=== PATIENT | female | born 1955 | race Caucasian/White ===

== ENCOUNTER 2020-12-28 02:04 | Outpatient (CLI) | payer MEDICARE, OTHER, SELFPAY ==
[2020-12-28 12:33] LABS: HCT 43.1 % (36.0-46.0); MCH 30.9 pg (27.0-33.0); MCHC 32.5 % (32.0-36.0); MCV 95.1 fL (80-95); MPV 10.1 fL (8.0-11.0); Platelet Count 237 10^3/uL (130-400); RBC 4.53 10^6/uL (3.93-5.22); RDW 13.1 % (11.7-14.6); RDW-SD 46.3 fL
[2020-12-28 13:17] LABS: ALT 30 U/L (14-59); AST 20 U/L (15-37); Albumin 4.3 g/dL (3.4-5.0); Alkaline Phosphatase 38 U/L (46-116); Anion Gap 6.4 mmol/L (3-11); BUN 13 mg/dL (7-18); Bilirubin, Total 0.6 mg/dL (0.2-1.0); CO2 32.6 mmol/L (21.0-32.0); CREATININE 0.8 mg/dL (0.55-1.02); Calcium 9.4 mg/dL (8.5-10.1); Calculated LDL 83 mg/dL (<100); Chloride 104 mmol/L (98-107); Cholesterol 167 mg/dL (<200); Glucose 87 mg/dL (74-106); HDL Cholesterol 64 mg/dL (40-60); Potassium 4.2 mmol/L (3.5-5.1); Sodium 143 mmol/L (136-145); Triglyceride 102 mg/dL (<150)
[2020-12-31 02:57] LABS: Vitamin D 25 Total 30.1 ng/mL (30-100)
== END 2020-12-28 02:05 | disposition home or self-care (01) ==
LOC: LBO 02:04
PROVIDERS: PCP Student in an Organized Health Care Education/Training Program; Visit Provider Student in an Organized Health Care Education/Training Program
DX: E78.5 Hyperlipidemia, unspecified (principal); M85.80 Other specified disorders of bone density and structure, unspecified site; G47.00 Insomnia, unspecified; E86.0 Dehydration; Z79.1 Long term (current) use of non-steroidal anti-inflammatories (NSAID)
CPT/HCPCS: 36415; 80053; 80061; 82306; 85027

== ENCOUNTER 2021-01-22 08:27 | Outpatient (CLI) | payer MEDICARE, OTHER, SELFPAY ==
--- NOTE | 2021-01-22 13:22 | DI.MAMMO_ITS ---
Exam(s) MAMMO SCREENING EXAM: MAMMO SCREENING CLINICAL HISTORY: screening,z12.39 TECHNIQUE: Mammograms were interpreted according to the usual protocol including computer analysis w Performable system, tomosynthesis and C-view imaging. COMPARISON: FINDINGS: The breasts are of moderate density with fairly symmetrical distribution of fibroglandular tissue. A 14 millimeter in diameter lobulated well-circumscribed mass of the upper outer quadrant of the right breast is again noted and unchanged in appearance comparison with prior examinations from January 08 and January 2018. No other significant changes seen. No clumped microcalcifications identified in either breast. IMPRESSION: No specific evidence of malignancy at this time. Routine screening examinations are suggested at yea rly intervals in this age group according to the ACS ACR guidelines. BI-RADS Category 1 - Negative Breast Density - Category B - Scattered areas of fibroglandular density
== END 2021-01-22 08:47 ==
PROVIDERS: PCP Student in an Organized Health Care Education/Training Program; Visit Provider Student in an Organized Health Care Education/Training Program
DX: Z12.31 Encounter for screening mammogram for malignant neoplasm of breast (principal)
CPT/HCPCS: 77063; 77067

== ENCOUNTER → 2022-02-26 00:55 | Outpatient (CLI) | payer MEDICARE, OTHER, SELFPAY ==
--- NOTE | 2022-02-26 15:20 | DI.MAMMO_ITS ---
Exam(s) MAMMO SCREENING EXAM: MAMMO SCREENING CLINICAL HISTORY: screening,z12.39. TECHNIQUE: Bilateral full field digital CC and MLO mammographic images were obtained with 3D tomosyn thesis and utilizing computer aided detection (CAD). COMPARISON: Prior mammograms were reviewed. FINDINGS: There has been no significant change in the appearance and distribution of the fibroglandular tissue. Previously described lateral of center right breast nodule is unchanged in size and configuration, un changed from 2018 and therefore most likely benign. There are no new spiculated masses nor malignant appearing microcalcification groups. Calcified oil cysts and benign macro calcifications are again evident in both breasts. There is no significant architectural distortion nor skin thickening-retraction. IMPRESSION: Stable benign-appearing findings. No radiographic evidence of malignancy. BI-RADS Category 2 - Benign Findings Breast Density - Category B - Scattered areas of fibroglandular density Breast density Category C or D implies that the patient has dense breast tissue. Dense breast tissue can make it harder to find cancer on a mammogram. Dense breast tissue is also associated with an incr eased risk of breast cancer. This information about the result of the mammogram report was provided to the patient to raise their awareness. Use this report when you speak with the patient about their risks for breast cancer, which includes their family history. At that time, you may recommend additional screening tests (Ultrasoun d or MRI) as these tests may add significant information. A negative radiographic report should not delay biopsy if a dominant or clinically suspicious mass is present. Up to ten percent of cancers are not identified on mammography. A negative report may reinforce clinical impression. Adenosis and dense breasts may obscure an underlying neoplasm. False positive reports average 6 to 10%. Patient will receive a letter notifying them of these results.
== END ==
PROVIDERS: PCP Student in an Organized Health Care Education/Training Program; Visit Provider Student in an Organized Health Care Education/Training Program
DX: Z12.31 Encounter for screening mammogram for malignant neoplasm of breast (principal)
CPT/HCPCS: 77063; 77067

== ENCOUNTER 2022-07-02 17:49 | Emergency (ER) | payer MEDICARE, OTHER, SELFPAY ==
[2022-07-02 17:52] VITALS: BP 154/78; PULSE 88; RESP 18; TEMP 37.2; O2SAT 98
--- NOTE | 2022-07-02 18:10 | ED.GENADUL_ITS ---
Discharge Plan Disposition Patient Disposition: Home Discharge Details Clinical Impression: Infected dog bite of hand Primary Care Provider: Kya Bui ED Provider: Dahlia Wakefield Home Meds and New Rx's Prescriptions: New amoxicillin-pot clavulanate 875-125 mg tablet 1 tab PO BID 10 Days Qty: 20 0RF No Action atorvastatin 20 mg tablet 20 mg PO DAILY Qty: 90 3RF Rx Instructions: Decreased from original 40mg per improved labs alendronate 70 mg tablet 70 mg PO QWEEK Qty: 52 0RF Discharge Instructions Instructions: Animal Bite (ED), Cellulitis (ED) Additional Instructions: Please take the antibiotic twice daily with yogurt or probiotic as directed. Please have your hand rechecked in the next 2 to 3 days. Please return sooner for any worsening redness or spreading redness up your arm, fever chills or concerns. Keep the bite clean and dry. You may wash with soap and water daily. You may return here to the ER or be seen by her PCP for wound recheck. Follow up with primary care provider in 3-5 days. Return to ED sooner if any worsening or concerns. Increase oral fluids. Referrals: Kya Bui DO [Primary Care Provider] - 3 days Discharge Data Discharge Date/Time-TO BE ENTERED AT DEPARTURE: 07/02/22 19:47 Medical Decision Making 67-year-old female presents to the ER with a chief complaint of right hand redness after being bit by her dog last night. She does have erythema extending up her forearm into her antecubital space. She does have a small skin tear noted to the dorsum of her right hand. She reports that she was playing with her dog and she took her hand back which was scraped by the dog's tooth. She reports some mild chills, no fever. She has full range of motion noted to her wrist and elbow. Last Tdap was 2019 4 years ago she is up-to-date. Work-up ordered including CBC CMP, lactate blood cultures x2, ampicillin 3gm IV ordered. CBC shows white blood cell count of 12.17, lactate 1.4 which is within normal limits sodium 135, glucose 123. Blood cultures pending at this time. Patient received 3 g of ampicillin sulbactam IV here in the department. Was given Augmentin 2 tablets to go and instructed to start those was given with a prescription for 10 days instructed to take with yogurt or probiotic. Patient was also instructed to have wound rechecked in 3 days either here or at PCP. Instructed to return sooner for any worsening red streaks or concerns. This text was generated using [employer] system, please disregard any oddities of phrase or misspellings. Lab Data Lab results reviewed: Yes I reviewed the patient's lab results. Labs: 07/02/22 18:38 Blood Blood Culture - Pending 07/02/22 18:07 Blood Blood Culture - Pending Laboratory Tests Range/Units 07/02/22 07/02/22 07/02/22 18:20 18:20 18:20 WBC (4.4-10.8) 10^3/uL 12.17 H RBC (3.93-5.22) 10^6/uL 4.41 Hgb (11.2-15.7) g/dL 13.5 Hct (36.0-46.0) % 40.2 MCV (80-95) fL 91 MCH (27.0-33.0) pg 30.6 MCHC (32.0-36.0) % 33.6 RDW (11.7-14.6) % 13.5 Plt Count (130-400) 10^3/uL 219 MPV (8.0-11.0) fL 10.2 Immature Gran % 0.2 Neutrophils % 80.3 Lymphocytes % 11.5 Monocytes % 7.2 Eosinophils % 0.6 Basophils % 0.2 Nucleated RBC % (0.0-0.3) % 0.0 Absolute Neutrophils (1.2-6.7) 10^3/uL 9.77 H Absolute Lymphocytes (1.2-3.4) 10^3/uL 1.40 Absolute Monocytes (0.1-0.8) 10^3/uL 0.88 H Absolute Eosinophils (0.0-0.7) 10^3/uL 0.07 Absolute Basophils (0.0-0.2) 10^3/uL 0.02 VBG Lactate (0.6-1.4) mmol/L 1.4 Sodium (136-145) mmol/L 135 L Potassium (3.5-5.1) mmol/L 3.7 Chloride (98-107) mmol/L 101 Carbon Dioxide (21.0-32.0) mmol/L 29.0 Anion Gap (3-11) mmol/L 5.0 BUN (7-18) mg/dL 10 Creatinine (0.55-1.02) mg/dL 0.8 Est GFR (CKD-EPI 2020) (mL/min/1.73m2) 80.21 Glucose (74-106) mg/dL 123 H Calcium (8.5-10.1) mg/dL 9.2 Magnesium (1.8-2.4) mg/dL 2.0 Total Bilirubin (0.2-1.0) mg/dL 1.1 H AST (15-37) U/L 27 ALT (14-59) U/L 29 Alkaline Phosphatase (46-116) U/L 40 L Total Protein (6.4-8.2) g/dL 7.4 Albumin (3.4-5.0) g/dL 4.3 HPI General Mode of arrival: ambulatory . Date/Time Provider Initiated Documentation: 07/02/22 17:59 . Limitations to Documentation: no limitations . Information obtained by: patient, RN notes reviewed and old records reviewed . HPI Narrative: 67-year-old female presents to the ER with a chief complaint of right hand redness after being bit by her dog last night. She does have erythema extending up her forearm into her antecubital space. She does have a small skin tear noted to the dorsum of her right hand. She reports that she was playing with her dog and she took her hand back which was scraped by the dog's tooth. She r eports some mild chills, no fever. She has full range of motion noted to her wrist and elbow. Last Tdap was 2019 4 years ago she is up-to-date. Related Data Home Medications Medication Instructions Recorded Confirmed alendronate 70 mg tablet 70 mg PO QWEEK #52 tabs 01/16/22 07/02/22 atorvastatin 20 mg tablet 20 mg PO DAILY #90 tabs 01/25/22 07/02/22 amoxicillin 875 mg-potassium 1 tab PO BID 10 days #20 tabs 07/02/22 clavulanate 125 mg tablet Previous Rx's Medication Instructions Recorded alendronate 70 mg tablet 70 mg PO QWEEK #52 tabs 01/16/22 atorvastatin 20 mg tablet 20 mg PO DAILY #90 tabs 01/25/22 amoxicillin 875 mg-potassium 1 tab PO BID 10 days #20 tabs 07/02/22 clavulanate 125 mg tablet Allergies Allergy/AdvReac Type Severity Reaction Status Date / Time No Known Allergies Allergy Verified 07/02/22 17:55 General Stated Complaint: Laceration NORMA: 3 Review of Systems All systems reviewed & are unremarkable except as noted in HPI and below Integumentary/Breasts Skin/Breast: Reports as per HPI, Reports erythema and Reports wounds PFSH All Active Problems (Updated 07/02/22 @ 19:36 by Dahlia Wakefield NP) Infected dog bite of hand (Acute) Hyperlipidemia (Acute) Statin 40 --> 20mg when establishing care (10/2020) .. Family hx of colon cancer (Acute) Pers Hx Polyps, so 1yr FU (2019?); 5 yr recall, for 2024 (but need rpt!) Contracture of right hand (Acute) Hx injury, Hx surgery (?). Worsening stiffness, contracture .. Ortho vs PT? Dupuytren's contracture of left hand (Chronic) Post surgery, with poor healing (permanent flexed pinky) Breast mass seen on mammogram (Chronic) Stable mass, 2020. YEARLY. Benign mass per mammo (01/2020), fibrous, mult calcifications. History of recurrent UTIs (Acute) Pelivc PT [ ] Osteoporosis (Chronic) med Rec shows Dx of Osteopenia, but Fosomax started & Hx reports: left femoral neck T-score -2.9 Insomnia (Acute) Hx Ambien Surgical History S/P wrist surgery (~2014) Family History Father Colon cancer Mother Heart disease Paternal Grandmother Diabetes Social History Smoking/Tobacco Use Status: Former Tobacco Use Quit Date: 03/09/76 Tobacco: How many years used: 2 Smoking risk assessment performed?: Yes Alcohol Intake: current Alcohol Intake frequency: a few times a week Alcohol type: beer and wine Drug use: Never Substance use type: does not use Adopted: No Caregiver/Support person: No Foster care: No Household members: spouse Housing: house Do you need help understanding health information?: Rarely Pets and animals: Yes Pets and animals: dog(s) Sexually active: No Do you think of yourself as: straight/heterosexual Current gender identity: female What is your relationship status?: How often do you talk on the phone with friends or family?: three or more times per week How often do you get together with friends or relatives?: once per week Panel score (0-1 are the most socially isolated patients): 2 What type of physical activity do you participate in: bicycling, other Details: skiiing and yoga Duration: 45-60 minutes/day Frequency: daily Seatbelt use: always Helmet use: Yes Drive intox or ride w/intox tractor trailer moving van driver: No Exam Const General: cooperative, healthy appearing, comfortable, well developed and well groomed Nutritional Appearance: average body habitus Orientation: alert, awake and oriented x3 Resp Effort & Inspection: normal respiratory effort and able to speak in complete sentences Auscultation: clear to auscultation bilaterally Cardio Rate: regular rate Rhythm: regular rhythm Extrem Right upper extremity: elbow/forearm and hand Details: normal capillary refill, neuromotor exam abnormal, neurosensory exam normal, normal ROM of fingers, warmth, swelling, abrasion and puncture wound Elbow/forearm/wrist images: 1. Erythema with red streaks 2. Small skin tear approximately 1.5 cm Course Vital Signs Vital signs: Vital Signs Temperature 37.2 C 07/02/22 17:52 Pulse 88 07/02/22 17:52 Respiratory Rate 18 07/02/22 17:52 Blood Pressure 154/78 H 07/02/22 17:52 Pulse Oximetry 98 07/02/22 17:52 Temperature 37.2 C 07/02/22 17:52 Temperature Source Oral 07/02/22 17:52 Pulse 88 07/02/22 17:52 Respiratory Rate 18 07/02/22 17:52 Respiratory Effort Normal, Non-Labored 07/02/22 17:55 Blood Pressure 154/78 H 07/02/22 17:52 Pulse Oximetry 98 07/02/22 17:52 Oxygen Delivery Method Room Air 07/02/22 17:52 Oxygen Flow Rate 0 07/02/22 17:52 Lab/Test Results Lab/Test Results: 07/02/22 18:07 Blood Blood Culture - Pending 07/02/22 18:07 Blood Blood Culture - Pending
--- NOTE | 2022-07-02 18:15 | DI.RAD_ITS ---
Exam(s) XR HAND RT COMPLETE EXAM: XR HAND RT COMPLETE CLINICAL HISTORY: Dog bite, R/O FB, FX. TECHNIQUE: 2D digital imaging was performed of the right hand. Three images were obtained. AP, late ral and oblique views were obtained. COMPARISON: No exams were available for comparison FINDINGS: BONES: No acute fracture is present. No bony destructive lesion is seen. The distal aspect of a sidep late and screws are seen in the distal right radius. There is a tiny calcific density seen at the ra dial aspect of the DIP joint of the long finger. This likely represents a benign calcification. Ple ase correlate with the patient's site of pain. There is an ununited ossification center of the ulnar styloid process. JOINTS: No dislocation present. SOFT TISSUE: There is soft tissue swelling of the index finger. No radiopaque foreign body is identi fied. IMPRESSION: 1. Soft tissue swelling of the index finger without foreign body or fracture. 2. Calcific density adjacent to the radial aspect of the DIP joint of the long finger. This does not appear to correspond to the site of pain. This likely reflects a benign calcification. Please sveta elate clinically. DATA REPOSITORY: RADIATION DOSE DELIVERED:
[2022-07-02 18:35] LABS: Lactate 1.4 mmol/L (0.6-1.4)
[2022-07-02 18:38] LABS: Abs Immature Grans 0.02 10^3/uL (0.0-0.06); Absolute Eosinophil Count 0.07 10^3/uL (0.0-0.7); Absolute Monocyte Count 0.88 10^3/uL (0.1-0.8); Absolute Neutrophil Count 9.77 10^3/uL (1.2-6.7); Basophils % 0.2; Eosinophils % 0.6; HCT 40.2 % (36.0-46.0); HGB 13.5 g/dL (11.2-15.7); Immature Grans % 0.2; Lymphocytes % 11.5; MCH 30.6 pg (27.0-33.0); MCHC 33.6 % (32.0-36.0); MCV 91 fL (80-95); MPV 10.2 fL (8.0-11.0); Monocytes % 7.2; Neutrophils % 80.3; Platelet Count 219 10^3/uL (130-400); RBC 4.41 10^6/uL (3.93-5.22); RDW 13.5 % (11.7-14.6); RDW-SD 45.7 fL; WBC 12.17 10^3/uL (4.4-10.8)
[2022-07-02 18:39] LABS: Absolute Basophil Count 0.02 10^3/uL (0.0-0.2)
[2022-07-02 18:52] LABS: ALT 29 U/L (14-59); AST 27 U/L (15-37); Albumin 4.3 g/dL (3.4-5.0); Alkaline Phosphatase 40 U/L (46-116); BUN 10 mg/dL (7-18); Bilirubin, Total 1.1 mg/dL (0.2-1.0); CREATININE 0.8 mg/dL (0.55-1.02); Calcium 9.2 mg/dL (8.5-10.1); Chloride 101 mmol/L (98-107); Estimated GFR 80.21 (mL/min/1.73m2); Glucose 123 mg/dL (74-106); Potassium 3.7 mmol/L (3.5-5.1); Sodium 135 mmol/L (136-145); Total Protein 7.4 g/dL (6.4-8.2)
--- NOTE | 2022-07-02 18:56 | DI.VRAD_ITS ---
PROCEDURE INFORMATION: Exam: XR Right Hand Exam date and time: 07/02/2022 6:45 PM Age: 67 years old Clinical indication: Injury or trauma; Other: Dog bite; Hand; Right TECHNIQUE: Imaging protocol: Radiologic exam of the right hand. Views: 3 or more views. COMPARISON: No relevant prior studies available. FINDINGS: Bones/joints: Orthopedic hardware noted in the distal radius. Small calcific density is seen at the radial margin of the 3rd distal interphalangeal joint. Osseous alignment is normal. Ununited ossification center of the ulnar styloid noted. Soft tissues: There appears to be moderate soft tissue swelling of the index finger. IMPRESSION: 1. Apparent soft tissue swelling of the index finger without evidence of radiodense foreign body or underlying fracture 2. Small calcific density at the radial margin of the 3rd DIP joint. This could represent a small fracture unless this does not correspond to the site of injury, in which case it likely represents a benign calcification. Dictated and Authenticated by: Ant Campbell MD. Ordering:ELIZABETH Villagomez MD
[2022-07-02] MEDS: AMPICILLIN/SULBACTAM 3 GM in Normal Saline 100 ML IVPB (18:57)
== END 2022-07-02 19:47 | disposition home or self-care (01) ==
PROVIDERS: Emergency Provider Registered Nurse Emergency; PCP Student in an Organized Health Care Education/Training Program
DX: S61.451A Open bite of right hand, initial encounter (principal); L08.9 Local infection of the skin and subcutaneous tissue, unspecified; R68.83 Chills (without fever); W54.0XXA Bitten by dog, initial encounter
CPT/HCPCS: 36415; 80053; 87040; 96365; 99284; 73130; 83605; 83735; 85025; J0295

== ENCOUNTER 2022-07-05 08:42 | Emergency (ER) | payer MEDICARE, OTHER, SELFPAY ==
[2022-07-05 08:45] VITALS: BP 166/91; PULSE 69; RESP 14; TEMP 36.1; O2SAT 96
--- NOTE | 2022-07-05 08:47 | W.ED.GENAD ---
Discharge Plan Disposition Patient Disposition: Home Discharge Details Clinical Impression: Healing wound Primary Care Provider: Kya Bui ED Provider: Vasile Grissom Home Meds and New Rx's Prescriptions: No Action atorvastatin 20 mg tablet 20 mg PO DAILY Qty: 90 3RF Rx Instructions: Decreased from original 40mg per improved labs alendronate 70 mg tablet 70 mg PO QWEEK Qty: 52 0RF Discharge Instructions Additional Instructions: Please continue taking the antibiotic as prescribed. HPI General Date/Time Provider Initiated Documentation: 07/05/22 08:47. HPI Narrative: Patient seen on july 02 following a dog bite to the right hand. She was told to return to the emergency department for wound check. She is taking the antibiotic. No drainage. No fever no chills. No bleeding. Decreased pain and increased mobility of the hand. Related Data Home Medications Medication Instructions Recorded Confirmed alendronate 70 mg tablet 70 mg PO QWEEK #52 tabs 01/16/22 07/05/22 atorvastatin 20 mg tablet 20 mg PO DAILY #90 tabs 01/25/22 07/05/22 Previous Rx's Medication Instructions Recorded alendronate 70 mg tablet 70 mg PO QWEEK #52 tabs 01/16/22 atorvastatin 20 mg tablet 20 mg PO DAILY #90 tabs 01/25/22 Allergies Allergy/AdvReac Type Severity Reaction Status Date / Time No Known Allergies Allergy Verified 07/02/22 17:55 General NORMA: 3 Review of Systems Narrative: Constitutional negative for fevers and chills. MSK no mobility. Skin healing well no drainage. Neuro normal sensation. PFSH All Active Problems (Updated 07/05/22 @ 08:51 by Vasile Grissom MD) Infected dog bite of hand (Acute) Healing wound (Acute) Hyperlipidemia (Acute) Statin 40 --> 20mg when establishing care (10/2020) .. Family hx of colon cancer (Acute) Pers Hx Polyps, so 1yr FU (2019?); 5 yr recall, for 2024 (but need rpt!) Contracture of right hand (Acute) Hx injury, Hx surgery (?). Worsening stiffness, contracture .. Ortho vs PT? Dupuytren's contracture of left hand (Chronic) Post surgery, with poor healing (permanent flexed pinky) Breast mass seen on mammogram (Chronic) Stable mass, 2020. YEARLY. Benign mass per mammo (01/2020), fibrous, mult calcifications. History of recurrent UTIs (Acute) Pelivc PT [ ] Osteoporosis (Chronic) med Rec shows Dx of Osteopenia, but Fosomax started & Hx reports: left femoral neck T-score -2.9 Insomnia (Acute) Hx Ambien Surgical History S/P wrist surgery (~2014) Family History Father Colon cancer Mother Heart disease Paternal Grandmother Diabetes Social History Smoking/Tobacco Use Status: Former Tobacco Use Quit Date: 03/09/76 Tobacco: How many years used: 2 Smoking risk assessment performed?: Yes Alcohol Intake: current Alcohol Intake frequency: a few times a week Alcohol type: beer and wine Drug use: Never Substance use type: does not use Adopted: No Caregiver/Support person: No Foster care: No Household members: spouse Housing: house Do you need help understanding health information?: Rarely Pets and animals: Yes Pets and animals: dog(s) Sexually active: No Do you think of yourself as: straight/heterosexual Current gender identity: female What is your relationship status?: How often do you talk on the phone with friends or family?: three or more times per week How often do you get together with friends or relatives?: once per week Panel score (0-1 are the most socially isolated patients): 2 What type of physical activity do you participate in: bicycling, other Details: skiiing and yoga Duration: 45-60 minutes/day Frequency: daily Seatbelt use: always Helmet use: Yes Drive intox 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 Respiratory no dyspnea Right hand. Healing wound on the dorsal aspect of the hand. Minimal swelling. No streaking
== END 2022-07-05 08:54 | disposition home or self-care (01) ==
PROVIDERS: Emergency Provider Emergency Medicine; PCP Student in an Organized Health Care Education/Training Program
DX: S61.451D Open bite of right hand, subsequent encounter (principal); W54.0XXD Bitten by dog, subsequent encounter
CPT/HCPCS: 99281; 99282

== ENCOUNTER 2023-04-03 01:59 | Outpatient (CLI) | payer MEDICARE, SELFPAY ==
[2023-04-03 07:54] LABS: Calculated LDL 97 mg/dL (<100); Cholesterol 177 mg/dL (<200); HDL Cholesterol 67 mg/dL (40-60); TSH (W/Ref FT4) 1.19 uIU/mL (0.36-3.74); Triglyceride 66 mg/dL (<150)
== END 2023-04-03 02:00 | disposition home or self-care (01) ==
LOC: LBO 01:59
PROVIDERS: PCP Student in an Organized Health Care Education/Training Program; Referring Provider Student in an Organized Health Care Education/Training Program; Visit Provider Student in an Organized Health Care Education/Training Program
DX: Z13.220 Encounter for screening for lipoid disorders (principal); F34.1 Dysthymic disorder; G47.00 Insomnia, unspecified; M81.0 Age-related osteoporosis without current pathological fracture; R19.4 Change in bowel habit
CPT/HCPCS: 36415; 80061; 84443

== ENCOUNTER → 2023-04-27 01:42 | Outpatient (CLI) | payer MEDICARE, SELFPAY ==
--- NOTE | 2023-04-27 15:07 | DI.MAMMO_ITS ---
Exam(s) MAMMO SCREENING EXAM: MAMMO SCREENING CLINICAL HISTORY: screening, z12.39 TECHNIQUE: Bilateral full field digital CC and MLO mammographic images were obtained with 3D tomosyn thesis and utilizing computer aided detection (CAD). COMPARISON: Available for comparison. FINDINGS: Masses/Architectural Distortion: There are stable bilateral breast nodules. No new nodules are seen. No areas of architectural distortion are present. Microcalcifications: No suspicious pleomorphic-type are seen. Skin Thickening/Nipple Retraction: None. IMPRESSION: 1. No significant interval change with no specific features of malignancy noted. 2. Unless there is more urgent need, screening mammography is recommended, as per [place] [employer] guidelines. BI-RADS Category 2 - Benign Findings Breast Density - Category B - Scattered areas of fibroglandular density Breast density category C or D implies that the patient has dense breast tissue. Dense breast tissue is very common and is not abnormal but dense breast tissue can make it harder to find cancer on a ma mmogram. Also, dense breast tissue may increase their breast cancer risk. This information about the result of the mammogram report was provided to the patient to raise their awareness. Use this report when you speak with the patient about their risks for breast cancer, which includes their family hist ory. At that time, you may recommend for more screening tests (Ultrasound or MRI) as they might be us eful based on their risk. A negative radiographic report should not delay biopsy if a dominant or clinically suspicious mass is present. Up to ten percent of cancers are not identified on mammography. A negative report may reinforce clinical impression. Adenosis and dense breasts may obscure an underlying neoplasm. False positive reports average 6 to 10%. Patient will receive a letter notifying them of these results.
== END ==
PROVIDERS: PCP Student in an Organized Health Care Education/Training Program; Visit Provider Student in an Organized Health Care Education/Training Program
DX: Z12.31 Encounter for screening mammogram for malignant neoplasm of breast (principal)
CPT/HCPCS: 77063; 77067

== ENCOUNTER → 2023-06-18 02:54 | Outpatient (CLI) | payer MEDICARE, SELFPAY ==
--- NOTE | 2023-06-18 08:45 | DI.DEXA_ITS ---
Exam(s) XR DEXA BONE DENSITY W/WO MAKAYLA EXAM: XR DEXA BONE DENSITY W/WO MAKAYLA CLINICAL HISTORY: re-evaluate bone density,osteoporosis, m81.0 TECHNIQUE: COMPARISON: No exams were available for comparison FINDINGS: Lateral Spine Image: Unremarkable. No compression deformities identified. Left hip: Total T-Score: -2.4 Total Z-Score: -0.9 T- and Z-scores: Findings are consistent with osteopenia. Lumbar Spine: Total T-Score: -1.1 Total Z-Score: 1.0 T- and Z-scores: Findings are consistent with osteopenia. Note is made of osteoporosis in the left forearm with a total T-score of -3.1 and a Z-score of -1.2. IMPRESSION: 1. No evidence of osteoporosis in the left hip or lumbar spine. 2. Osteoporosis is seen in the left forearm.
== END ==
PROVIDERS: PCP Student in an Organized Health Care Education/Training Program; Visit Provider Student in an Organized Health Care Education/Training Program
DX: M81.0 Age-related osteoporosis without current pathological fracture (principal); M85.88 Other specified disorders of bone density and structure, other site
CPT/HCPCS: 77080

== ENCOUNTER 2023-10-12 03:22 | Outpatient (CLI) | payer MEDICARE, SELFPAY ==
[2023-10-12 08:10] LABS: Anion Gap 7.3 mmol/L (3-11); BUN 12 mg/dL (7-18); CO2 29.7 mmol/L (21.0-32.0); Chloride 104 mmol/L (98-107); Estimated GFR 60.98 (mL/min/1.73m2); Glucose 64 mg/dL (74-106); Potassium 3.6 mmol/L (3.5-5.1); Sodium 141 mmol/L (136-145); Vitamin D 25 Total 25.9 ng/mL (30-100)
== END 2023-10-12 03:23 | disposition home or self-care (01) ==
PROVIDERS: PCP Student in an Organized Health Care Education/Training Program; Visit Provider Student in an Organized Health Care Education/Training Program
DX: Z91.89 Other specified personal risk factors, not elsewhere classified (principal); Z13.1 Encounter for screening for diabetes mellitus; M85.80 Other specified disorders of bone density and structure, unspecified site; R93.7 Abnormal findings on diagnostic imaging of other parts of musculoskeletal system; K90.9 Intestinal malabsorption, unspecified
CPT/HCPCS: 36415; 80048; 82306; 85018